=== PATIENT | male | born 1975 | race Hispanic/Latino ===

== ENCOUNTER 2018-07-03 14:41 | Observation (INO) | payer BC ==
[~2018-07-03] VITALS: Ht 154.4 cm; Wt 89.8 kg
[2018-07-03] MEDS ORDERED: HYDROCODONE/APAP 10MG-325MG TAB PO ONE (15:00)
[2018-07-03] MEDS ORDERED: CYCLOBENZAPRINE HCL 10 MG TAB PO ONE (15:00)
[2018-07-03] MEDS ORDERED: KETOROLAC TROMETHAMINE 60 MG/2 ML VIAL IM ONE (15:00)
[2018-07-03] MEDS ORDERED: DEXAMETHASONE SOD PHOS 10 MG/1 ML VIAL IV ONE (15:00)
[2018-07-03] MEDS ORDERED: KETOROLAC TROMETHAMINE 30 MG/ML VIAL IM PRN (17:00)
[2018-07-03] MEDS ORDERED: SODIUM CHLORIDE FLUSH 10 ML SYR INJ PRN (17:00)
[2018-07-03] MEDS ORDERED: CYCLOBENZAPRINE HCL 10 MG TAB PO PRN (17:00)
--- NOTE | 2018-07-03 17:18 | Diagnostic Imaging Report ---
Examination: MRI SPINE LUMBAR WITHOUT CONTRAST History: Right sided back pain radiating to the right lower extremity with associated numbness. Right leg paresthesias. Comparison studies: None Technique: Sagittal, coronal and axial T2 , sagittal T1 and STIR; axial spin density oblique. Findings: Number of lumbar vertebral bodies: Five. Alignment: Normal lordosis. No scoliosis. Soft tissues: No T2 hyperintense inflammatory changes. Posterior paraspinal soft tissues and muscles: No abnormality. Lower thoracic cord: Normal in signal and morphology. The tip of the conus is at T12. Cauda equina: No masses. No arachnoiditis. Vertebrae: No fractures, infection or neoplasm. Degenerative changes: L1-L2: Mild bilateral facet arthropathy. No degenerative disc or canal or foraminal stenosis. L2-L3: Small left central disc protrusion with associated annular fissure. Asymmetric to left disc bulge results in mild left neural foraminal narrowing. No right foraminal or canal stenosis. L3-L4: Central disc protrusion with associated annular fissure. Mild diffuse disc bulge and mild bilateral facet arthropathy result in mild bilateral neural foraminal narrowing. No canal stenosis. L4-L5: Large right subarticular disc protrusion with a soft tissue component that is not attached to the parent disc, but is similar in signal intensity and is immediately inferior to the disc protrusion. The composite of these findings causes severe right lateral recess narrowing and impingement of the descending right L5 nerve root. Prior right laminotomy. Mild bilateral neural foraminal narrowing due to diffuse disc bulge. L5-S1: Central, right central disc protrusion which contacts the descending right S1 nerve root. No foraminal or canal stenosis. IMPRESSION: 1. Severe right lateral recess narrowing and impingement of the descending right L5 nerve root due to a large right subarticular disc protrusion with a presumed sequestered inferiorly migrated disc. Contrast has not been given on this examination in the patient who has had prior surgery and therefore the soft tissue that is inferior to the parent disc could also represent granulation tissue. 2. Annular fissures at L2-L3 and L3-L4. 3. Prior right laminotomy at L4-L5. Signed by: Dr. Hattie Yates M.D. on 07/03/2018 5:15 PM
--- OUTSIDE RECORDS SUMMARY | 2018-07-03 17:41 | XMS REPORT ---
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 Allergies, Adverse Reactions, Alerts This patient has no known allergies or adverse reactions. Medications This patient has no known medications. 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 Right leg paresthesias. Comparison studies: None Technique: Sagittal, coronal and axial T2 , sagittal T1 and STIR; axial spin density oblique. Findings: Number of lumbar vertebral bodies: Five. Alignment: Normal lordosis. No scoliosis. Soft tissues: No T2 hyperintense inflammatory changes. Posterior paraspinal soft tissues and muscles: No abnormality. Lower thoracic cord: Normal in signal and morphology. The tip of the conus is at T12. Cauda equina: No masses. No arachnoiditis. Vertebrae: No fractures, infection or neoplasm. Degenerative changes: L1-L2: Mild bilateral facet arthropathy. No degenerative disc or canal or foraminal stenosis. L2-L3: Small left central disc protrusion with associated annular fissure. Asymmetric to left disc bulge results in mild left neural foraminal narrowing. No right foraminal or canal stenosis. L3-L4: Central disc protrusion with associated annular fissure. Mild diffuse disc bulge and mild bilateral facet arthropathy result in mild bilateral neural foraminal narrowing. No canal stenosis. L4-L5: Large right subarticular disc protrusion with a soft tissue component that is not attached to the parent disc, but is similar in signal intensity and is immediately inferior to the disc protrusion. The composite of these findings causes severe right lateral recess narrowing and impingement of the descending right L5 nerve root. Prior right laminotomy. Mild bilateral neural foraminal narrowing due to diffuse disc bulge. L5-S1: Central, right central disc protrusion which contacts the descending right S1 nerve root. No foraminal or canal stenosis. IMPRESSION: 1. Severe right lateral recess narrowing and impingement of the descending right L5 nerve root due to a large right subarticular disc protrusion with a presumed sequestered inferiorly migrated disc. Contrast has not been given on this examination in the patient who has had prior surgery and therefore the soft tissue that is inferior to the parent disc could also represent granulation tissue. 2. Annular fissures at L2- L3 and L3-L4. 3. Prior right laminotomy at L4-L5. Signed by: Dr. Hattie Yates M.D. on 07/03/2018 5:15 PM Dictated By: HATTIE GRAY MD 14 Transcribed By: LIDIA on 07/03/181714 COPY TO: SAUNDRA CARRASCO NP
[2018-07-03] MEDS ORDERED: DEXAMETHASONE SOD PHOS INJ 4 MG/ML VIAL ONE (20:48)
[2018-07-03 20:53] VITALS: BP 123/74
--- NOTE | 2018-07-03 20:53 | NUR ---
PT ARRIVED TO THE UNIT FROM ER IN A STRETCHER WITH C/O BACK PAIN.AAOX4.AMBULATES WITH WALKER.ASSESSMENT DONE.NO RESP.DISTRESS.BACK PAIN VOICED 09/16.ORIENTED TO THE UNIT.INFORMED ABOUT THE CONSULTS.ORDERED TO KEEP ON NPO AFTER 12 MN.IV #20 G TO RAC.PATENT.PAIN MEDICINE GIVEN.KEEP MONITOR THE PT.
[2018-07-03] MEDS: METHYLPREDNISOLONE SOD SUCC 125 MG/2ML VIAL IV SCH (20:56)
[2018-07-03 21:00] VITALS: BP 123/74
[2018-07-03 22:00] VITALS: BP 123/74
[2018-07-04] VITALS (8 sets, daily range): BP systolic 110–140; BP diastolic 60–75
[2018-07-04] MEDS: METHYLPREDNISOLONE SOD SUCC 125 MG/2ML VIAL IV SCH ×3 (02:06→16:40)
--- NOTE | 2018-07-04 03:00 | NUR ---
VOIDED.SLEEPING COMFORTABLY IN THE BED.STABLE CONDITION.
--- NOTE | 2018-07-04 06:56 | NUR ---
REPORT GIVEN TO THE ONCOMING RN.WALKING ROUNDS DONE.STABLE CONDITION.
--- NOTE | 2018-07-04 07:05 | NUR ---
PT RESTING IN BED AAX03. PT IS IN NO S.S OF DISTRESS. AMBULATES WITH WALKER. PT HAS A RIGHT AC 20G SL THAT IS PATENT AND DRY. PT IS NPO FOR POSSIBLE SX AT THIS TIME. WILL CONTINUE TO CARE FOR PT AT THIS TIME TIME , SIDE RAILSX2 , BED WHEELS LOCKED, CALL LIGHT IS WITHIN EASY REACH, INSTRUCTED TO CALL FOR ASSISTANCE IF NEEDED
--- NOTE | 2018-07-04 08:30 | NUR ---
PT SINGED CONSENT FOR SX AFTER MD BOOKER ROUNDED.
--- NOTE | 2018-07-04 09:40 | NUR ---
PT IS OFF UNIT FOR SX AT THIS TIME VIA STRETCHER
[2018-07-04] MEDS: LACTATED RINGER'S 1,000 ML IV SCH ×2 (11:41→20:01)
[2018-07-04] MEDS ORDERED: CEPACOL SORE THROAT LOZENGES PO PRN (11:45)
[2018-07-04] MEDS ORDERED: ONDANSETRON HCL INJ 2MG/ML 2ML 2 MG/ML VIAL IV PRN (11:45)
[2018-07-04] MEDS ORDERED: ACETAMINOPHEN 325 MG TAB PO PRN (11:45)
[2018-07-04] MEDS ORDERED: ZOLPIDEM TARTRATE 5 MG TAB PO PRN (11:45)
[2018-07-04] MEDS ORDERED: OXYCODONE/ACETAMINOPHEN 5-325 1 EACH TABLET PO PRN (11:45)
[2018-07-04] MEDS ORDERED: HYDROMORPHONE 2MG/ML 2 MG/ML ML IV PRN ×2 (11:45→12:00)
[2018-07-04] MEDS ORDERED: MAGNESIUM/ALUMINUM/SIMETHICONE 30 ML UDC PO PRN (11:45)
[2018-07-04] MEDS ORDERED: MORPHINE SULFATE 5 MG/ML VIAL IM PRN (11:45)
[2018-07-04] MEDS ORDERED: PROMETHAZINE HCL (IM) 25 MG/ML VIAL IM PRN (11:45)
--- NOTE | 2018-07-04 11:51 | Diagnostic Imaging Report ---
Exam: Prone crosstable lateral view of the lumbar spine dated 07/04/2018 at 9:39 AM History: Localization for surgical level; low back pain. Comparison: None available Findings: Assuming that there are 5 lumbar vertebral body segments. Single view shows a metallic pointer/probe pointing to the L4-L5 level. Impression: Surgical localization Signed by: Dr. Bairon Prather DO on 07/04/2018 11:48 AM
[2018-07-04] MEDS ORDERED: KETOROLAC TROMETHAMINE 30 MG/ML VIAL IM PRN (12:00)
--- NOTE | 2018-07-04 12:14 | NUR ---
RECEIVED REPORT FROM GURINDER IN PACU. AWAITING FOR PT TO ARRIVE TO FLOOR
--- NOTE | 2018-07-04 12:38 | NUR ---
PT BACK TO FLOOR AA0X3. PT COMPLAINTS OF PAIN TO HIS BUTT CHEEK 07/17 WILL GIVE PRN MED NEEDED PT HAS A DRESSING TO THE LOWER BACK DRY AND INTACT RIGHT AC 20 NOT PATENT DC. STARTED NEW IV TO THE LEFT AC 20 WITH LR AT 100 RUNNING NOW. PT HAS A REG DIET BEDSIDE NOW. WILL CONTINUE TO MONITOR CALL LIGHT IS AT REACH INSTRUCTED TO CALL FOR ASSISTANCE IF NEEDED INSTRUCTED NOT TO GET UP WITHOUT CALLING FOR ASSISTANCE PT VERBALIZES UNDERSTANDING
[2018-07-04] MEDS: CARISOPRODOL 350 MG TAB PO PRN ×2 (13:07→23:13)
[2018-07-04] MEDS ORDERED: CEFAZOLIN SOD 1 GM/NS 50ML 50 ML IV SCH (14:00)
[2018-07-04] MEDS: OXYCODONE/ACETAMINOPHEN 5-325 1 EACH TABLET PO PRN ×2 (14:02→23:13)
[2018-07-04] MEDS: CEFAZOLIN SOD 1 GM/NS 50ML 50 ML IV SCH (16:40)
--- NOTE | 2018-07-04 16:56 | Operative Report ---
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 PROCEDURE PERFORMED: Right L4-5 redo laminotomy, medial facetectomy, and microsurgical diskectomy, [id number]. ANESTHESIA: General. INDICATIONS: The patient is a 43-year-old man, who has previously undergone right L4-5 laminotomy and microsurgical diskectomy by mi 5 years ago with excellent results. He now presents with severe recurrent right L5 radiculopathy of 1 to 2 weeks duration and is found to have a large recurrent disk herniation with inferior migration of the extruded disk fragment into the right L5 lateral recess. The patient was taken to operating room for redo microsurgical diskectomy. DESCRIPTION OF PROCEDURE: After induction of general anesthesia, the patient was placed on the operating table in prone position over a Yao frame. The lumbar region was prepped and draped in sterile fashion. A preoperative x-ray was obtained. A small midline incision was created overlying his previous incision scar. The lumbar fascia was opened to the right of midline and a subperiosteal dissection was carried out to expose the right side of the L4 and L5 lamina and the medial aspect of the facet joint. The region of the previous laminotomy was defined with curette and some of the scar in this region was resected. An x-ray confirmed correct localization. The operating microscope was brought in. A high speed drill equipped with tianna bur was used to extend the previous laminotomy sliding superiorly, laterally, and inferiorly along the perimeter of the previous laminotomy, we noted to encounter a virgin epidural plane. The residual ligamentum flavum in this region was resected and the lateral margin of dural sac was exposed. This plane of dissection was then followed in serially as the scar was resected to locate the lateral margin of the L5 nerve roots. Dissection was carried out all the way down to the medial rim of the L5 pedicle. The extruded disk material came into view below the disk space in the lateral recess of L5, markedly elevating the L5 nerve roots. The extruded disk material was then mobilized with a micro ball probe and grasped with micro pituitary rongeur and removed as a soft fragment of disk. This maneuver was repeated several times and multiple additional fragments of extruded disk were retrieved and removed from the right L5 lateral recess until the nerve root was fully exposed and decompressed. No CSF leak was encountered at any point of operation. Meticulous hemostasis was secured. Rectractor was removed. The lumbar fascia was closed with 0 Vicryl sutures, subcutaneous layer was closed with 2-0 Vicryl sutures, the skin was closed with 3-0 Monocryl sutures in subcuticular fashion. Steri-Strips and dressing were applied. The patient was awakened, extubated, and taken to Postanesthesia Care Unit in stable condition. No intraoperative complications were encountered. Estimated blood loss was 10 mL. Atif Walsh MD PP/SAURAV /[id number]
--- NOTE | 2018-07-04 17:26 | Consultation ---
DATE OF CONSULTATION: 07/04/2018 Consultation Note REASON FOR CONSULTATION: Low back and right leg pain. HISTORY OF PRESENT ILLNESS: The patient is a 43-year-old man, who has previously undergone right L4-5 laminotomy and microsurgical diskectomy by me about 5 year ago with excellent results. He now presents with a 1-week history of excruciating recurrent low back pain that radiates down to the right leg. He can no longer ambulate because of the pain and presents to the emergency room yesterday and was admitted and had an MRI. The pain radiates as far as the foot and is associated with numbness in the foot and weakness of the right dorsiflexion. He denies any pain in the left leg, or bowel or bladder incontinence. PHYSICAL EXAMINATION: GENERAL: The patient is in bed. MUSCULOSKELETAL: He sits up with great difficulty and has severe pain when he does so. Straight leg raising is positive on the right at 20 degrees and negative on the left. Motor strength is diminished in the right anterior tibialis graded as 4/5. Sensation is diminished over the dorsum of the right foot. MRI of the lumbar spine reveals evidence of previous right L4-5 laminotomy and medial facetectomy. There is a large recurrent disk herniation at L4-5 and inferior migration of the extruded disk fragment producing severe compression of the L5 nerve root. IMPRESSION: Large recurrent right L4-5 disk herniation with severe recurrent right L5 radiculopathy. The patient has difficulty with ambulation due to pain. I recommend right L4-5 redo laminotomy, medial facetectomy, and microsurgical diskectomy. The risks, benefits, and alternatives including the increased risk of cerebrospinal fluid leakage and suboptimal recovery of sensory or motor function after second operation in the same region were explained to the patient. He fully understands all these issues and gives informed consent to proceed with the surgery. We will proceed with surgery later today. Atif Walsh MD PP/SAURAV /[id number]
[2018-07-04] MEDS ORDERED: MIDAZOLAM HCL 2 MG/2 ML VIAL ONE (18:04)
[2018-07-04] MEDS ORDERED: FENTANYL CITRATE/PF 100MCG/2 ML INJ ONE (18:04)
--- NOTE | 2018-07-04 21:00 | NUR ---
ASSESSMENT DONE.AAOX4.NO RESP.DISTRESS.DRESSING @ BACK DRY AND INTACT.BED LOCKED AND IN LOWEST POSITION.PHONE AND CALL LIGHT WITHIN REACH.INSTRUCTED TO CALL FOR ASSISTANCE NEEDED.
[2018-07-05 00:18] VITALS: BP 135/69
[2018-07-05] MEDS: CEFAZOLIN SOD 1 GM/NS 50ML 50 ML IV SCH ×2 (01:18→09:21)
[2018-07-05] MEDS: METHYLPREDNISOLONE SOD SUCC 125 MG/2ML VIAL IV SCH ×2 (01:34→09:21)
[2018-07-05 04:00] VITALS: BP 115/59
[2018-07-05] MEDS: LACTATED RINGER'S 1,000 ML IV SCH ×2 (04:21→12:41)
--- NOTE | 2018-07-05 05:45 | NUR ---
DRESSING CHANGED.DRY .PT TOLERATED WELL.
--- NOTE | 2018-07-05 07:00 | NUR ---
REPORT GIVEN TO THE ONCOMING RN.WALKING ROUNDS DONE.STABLE CONDITION.
[2018-07-05 08:11] VITALS: BP 125/60
[2018-07-05] MEDS ORDERED: HYDROCODON-ACE1 EA12 PO (08:27)
[2018-07-05 09:25] VITALS: BP 125/60
[2018-07-05 12:33] VITALS: BP 135/71
--- NOTE | 2018-07-05 12:43 | NUR ---
CASE MANAGEMENT INITIAL ASSESSMENT Deckhand [employer] Boat to bedside to discuss plan of care with patient/family. CM/SW role and care transitions discussed. Anticipated discharge plan discussed along with duration of care. CM/SW discussed patients right to make decisions in care. CM work hours given. Patient lives: PATIENT LIVES WITH FATHER AND SISTER IN [facility] STORY HOME IN [facility] Admit/Transfer: OR Hospital/ER visits since last admit: NONE POA/Emergency contact: FATHER- KANDICE BLANKENSHIP: [phone] Current/Previous Home Health: NONE AT THIS TIME PCP/Follow-up Care: DR. ECHEVARRIA Current/Previous DME: NONE AT THIS TIME Medications (referring to index hospitalization or the first time you were in the hospital) a. Were changes made in your medications when you were in the hospital on [date of index hospitalization]? Yes No Not sure Explain: Note: If no or not sure, please skip to question d b. Did you understand the changes? Yes No Explain: c. Were you able to obtain your new medications right away? Yes Non/a SNF only Explain: d. Were you able to take your medications like the doctor wanted you to? Yes No Explain: e. Did the hospital give you an accurate, easy to understand list of medications when you left? Yes No n/a SNF only Explain: Scale of 1-10 how comfortable does patient feel with disease management in outpatient setting: Other Services: NONE Employment Status: [employer] Areas of Concerns: NONE Referral Needs: NONE AT THIS TIME Education Needs: POST OP EDUCATION IMM/WINKLER given and signed (if applicable): N/A Goal for discharge: DISCHARGE HOME WITH NO NEEDS CM left business card at the bedside with contact information. Name and number was also written on the patients whiteboard. Patient verbalized understanding of discussion. CM will follow-up with ongoing discharge and transition of care needs.
--- NOTE | 2018-07-05 13:35 | NUR ---
DISCHARGE INSTRUCTIONS REVIEWED WITH PT AND FAMILY, VERBALIZED UNDERSTANDING, LOWER BACK DRESSING REMOVED, STERI STRIPS INTACT, PT DENIES PAIN AT THIS TIME,
== END 2018-07-05 13:26 | disposition home or self-care (01) ==
LOC: ER 14:41 → ERHOLD 17:39 → INTOOBSV 17:39 → MED/SURG 20:54
DX: M51.16 Intervertebral disc disorders with radiculopathy, lumbar region (principal)
CPT/HCPCS: 63042; 72020; 72148; 88304; 99284; G0378 ×3; J0690 ×2; J1100; J1885; J2250; J2930 ×3